=== PATIENT | male | born 1995 | race Hispanic/Latino ===

== ENCOUNTER 2020-03-21 11:27 | Day surgery (SDC) | payer OTHER ==
[2020-03-21] MEDS ORDERED: Ondansetron PF 4 MG/2 ML Vial ONE ×2 (11:53→12:06)
[2020-03-21] MEDS ORDERED: Ketorolac Tromethamine 30 MG/ML VIAL ONE (11:53)
[2020-03-21] MEDS ORDERED: Succinylcholine Chloride 20 MG/ML 10 ml SYRINGE FS ONE (11:53)
[2020-03-21] MEDS ORDERED: PROPOFOL 200 MG/20 ML VIAL ONE (11:53)
[2020-03-21] MEDS ORDERED: Dexamethasone 20 MG/5 ML VIAL ONE (11:53)
[2020-03-21] MEDS ORDERED: Rocuronium Bromide 10 MG/ML (10ML VIAL) ONE (11:53)
[2020-03-21] MEDS ORDERED: Lidocaine 1% PF 5 ML VIAL ONE (11:53)
[2020-03-21] MEDS ORDERED: Glycopyrrolate 0.2 MG/ML 5 ML SYRINGE ONE (11:53)
[2020-03-21 12:02] LABS: Hemoglobin 15.8 g/dL (14.0-18.0); Mean Corpuscular HGB CONC 32.5 g/dL (32.0-36.0); Mean Corpuscular Hemoglobin 29.9 pg (27.0-31.0); Mean Platelet Volume 10.3 fL (7.4-10.4); Platelet Count 203 thou/uL (130-400); RBC Distribution Width 11.8 % (11.5-14.5); Red Blood Cell (RBC) Count 5.28 mill/uL (4.70-6.10); White Blood Cell (WBC) Count 19.5 thou/uL (4.8-10.8)
[2020-03-21] MEDS ORDERED: Morphine 4 MG/ML VIAL ONE (12:06)
[2020-03-21] MEDS ORDERED: Piperacillin/Tazobactam 3.375 GM VIAL ONE (12:06)
--- NOTE | 2020-03-21 12:18 | RAD ---
PORTABLE CHEST: DATE: 03/21/2020. PROVIDED CLINICAL HISTORY: Right lower quadrant pain. FINDINGS: Cardiac and mediastinal silhouette is within normal limits. No focal consolidation, pleural fluid, o r pneumothorax apparent. IMPRESSION: No evidence for an acute cardiopulmonary process. POS: TINO
[2020-03-21 12:26] LABS: Band 14 % (5-11); Eosinophils 1 % (0-10); Lymphocytes 6 % (21-51); MDiff Complete? YES; Monocytes 5 % (0-10); Neutrophil 71 % (42-75); Platelet Morphology Comment Appears Adequate; Polychromasia SLIGHT = 2-3 cells (100X) (0-2/hpf); Reactive Lymphocytes 3 % (0-10)
[2020-03-21 12:30] LABS: ALT (SGPT) 12 U/L (8-55); AST (SGOT) 16 U/L (5-34); Alkaline Phosphatase 96 U/L (40-110); Anion Gap 17 mmol/L (10-20); BUN (Urea Nitrogen) 11 mg/dL (8.9-20.6); Bilirubin, Total 0.7 mg/dL (0.2-1.2); Calc. Creatinine Clearance 0 mL/min (70-130); Calcium 9.7 mg/dL (7.8-10.44); Carbon Dioxide 24 mmol/L (22-29); Chloride 99 mmol/L (98-107); Estimated GFR-MDRD Greater than 90; Globulin 3.2 g/dL (2.4-3.5); Glucose 104 mg/dL (70-105); Potassium 3.8 mmol/L (3.5-5.1); Protein, Total 8.2 g/dL (6.0-8.3); Sodium 136 mmol/L (136-145)
[2020-03-21] MEDS ORDERED: SUGAMMADEX SODIUM 200 MG/2 ML VIAL ONE (12:58)
[2020-03-21] MEDS ORDERED: Fentanyl 100 MCG/2 ML VIAL ONE (12:58)
[2020-03-21] MEDS ORDERED: Bupivacaine 0.25% HCL 30 ML VIAL ONE (13:06)
[2020-03-21] MEDS ORDERED: Lidocaine 1% w/Epinephrine 1:100K 20 ML VIAL ONE (13:06)
[2020-03-21] MEDS ORDERED: EPINEPHrine 1 MG/ML AMP ONE (13:09)
--- NOTE | 2020-03-21 13:15 | HP ---
HISTORY OF PRESENT ILLNESS: Mr. Manzano is a 24-year-old man, presented to emergency department today. The patient gives a history of insidious onset right lower quadrant abdominal pain of three days' duration. The patient admits to varying intensities and no radiation of the pain. He admits to some fever and chills. He is currently anorexic. He denies any change in his bowel habits. PAST MEDICAL HISTORY: The patient denies any previous medical problems. PAST SURGICAL HISTORY: He has had no previous surgeries. SOCIAL HISTORY: He lives at home with his mother and stepfather. He denies any cigarette smoking, ethanol, or illicit drug abuse. FAMILY HISTORY: The patient denies any family history of diabetes mellitus, heart disease, cancer, or any gastrointestinal disorders. CURRENT MEDICATIONS: None. ALLERGIES: THE PATIENT DENIES ANY KNOWN DRUG ALLERGIES. REVIEW OF SYSTEMS: Ten-point review of systems essentially unremarkable except as stated in past medical history and chief complaint. PHYSICAL EXAMINATION: GENERAL: This reveals a 24-year-old normally developed man, who is otherwise coherent, interactive, and appears stated age. The patient is alert and oriented x3, appears to be in no acute distress at the time of my evaluation. VITAL SIGNS: Include blood pressure 146/100, pulse 112, respiratory rate is 16, temperature 100.1 degrees Fahrenheit, oxygen saturation is 100% on room air. HEENT: Normocephalic and atraumatic. Pupils are equal, round, and reactive to light and accommodation. HEART: Reveals regular rate with sinus tachycardia. No murmurs or gallops auscultated. LUNGS: Clear to auscultation bilaterally. His breathing is regular and nonlabored. ABDOMEN: Soft with right lower quadrant tenderness at McBurney's. He has a positive Rovsing sign. Liver and spleen otherwise nonpalpable below costal margin. He has a positive heel tap test. NEUROLOGIC: Reveals no focal deficits present. LABORATORY FINDINGS: Today include a CBC with 19,500 white blood cells, hemoglobin and hematocrit 15.8 and 48.6 respectively. Platelet count is 203,000. Differential counts as follows; 71 segmented neutrophils, 14 bands, 6 lymphocytes, 5 monocytes, and 1 eosinophil. Metabolic profile; sodium 136, potassium 3.8, chloride is 99, bicarb is 24, BUN 11, creatinine 0.93, glucose 104, lactic acid 2.6, AST and ALT 16 and 12 respectively. Alkaline phosphatase is also normal at 96. IMPRESSIONS: Acute appendicitis, likely with perforation and localized peritonitis. RECOMMENDATIONS AND PLAN: Laparoscopic appendectomy. Above findings and recommendations have been discussed with the patient, who indicates understanding of information given. I have advised the patient of the risks and benefits of proposed surgery to include, but not limited to bleeding, infection, injury to bowel or surrounding structures. The patient indicates understanding of information provided. I have answered his questions. He has granted consent for this admission and surgical intervention. Job ID: [id number]
[2020-03-21] MEDS ORDERED: Scopolamine 1.5 mg/72 hour Patch ONE (13:42)
[2020-03-21 13:59] LABS: SARS-CoV-2 NAA Rapid Test Not Detected (NotDetected)
[2020-03-21 16:56] LABS: Lactic Acid 2.3 mmol/L (0.5-2.2)
--- NOTE | 2020-03-21 18:50 | OP ---
DATE OF PROCEDURE: 03/21/2020 PREOPERATIVE DIAGNOSIS: Acute appendicitis. POSTOPERATIVE DIAGNOSIS: Acute retrocecal appendicitis with localized peritonitis. OPERATION PERFORMED: Laparoscopic appendectomy. ANESTHESIA: General endotracheal. ESTIMATED BLOOD LOSS: 10 mL. FLUIDS GIVEN: 1000 mL of crystalloids. COUNTS: Sponge and instrument counts were verified as correct x2. COMPLICATIONS: None apparent at the time of operation. INDICATIONS FOR OPERATION: This is a 24-year-old man, presented with 3-day history of right lower quadrant abdominal pain. Clinical and radiographic examination were consistent with acute appendicitis, for which the patient was brought to the operating room for appendectomy. Findings are consistent with suppurative, but nonperforated retrocecal appendix. DESCRIPTION OF PROCEDURE: Informed consent was obtained from the patient. He was brought to the operating room and placed in supine position. Following general anesthesia, abdomen was sterilely prepped and draped in the usual fashion. The skin below the umbilicus was infiltrated with 0.25% Marcaine with epinephrine. A small curvilinear infraumbilical incision was made using 11 scalpel. Umbilical stalk was grasped with Ariana and elevated. Veress needle was inserted through the incision and placed in the peritoneal cavity, through which the abdomen was insufflated with 2.5 L of CO2 gas. Intraabdominal pressure noted at 1 mmHg. Following abdominal insufflation, Veress needle was removed and a 5-mm trocar introduced using a Visiport under laparoscopy. Laparoscopy confirmed proper placement of the port, no injuries to underlying structures. Additional laparoscopy revealed the right lower quadrant partially obscured by omental adhesions. Under direct laparoscopy, two 5-mm suprapubic and left lower quadrant ports were placed after the overlying skin was infiltrated with 0.25% Marcaine with epinephrine and appropriate incision was made. The patient was placed in a Trendelenburg position, rotated to his left. I introduced a Prestige grasper through the left lower quadrant port site, using this to bluntly take down omental adhesions to reveal a retrocecal appendix. Endo Wilfredo forceps introduced through the suprapubic port site, grasping the appendix, which was elevated. I created a rent through the mesoappendix using a [place] dissector. The mesoappendix was then sterilely taken down using the LigaSure with good hemostasis. The appendix itself was divided at the appendicocecal junction between Endoloop. The appendix was delivered off the abdominal cavity using an EndoCatch. Operative site was inspected for good hemostasis. Finding no other pathology, laparoscopy was terminated. Fascia of the left lower quadrant port was closed using 0 Vicryl suture and Endoclosure device under laparoscopy. The abdomen was desufflated. All ports and instruments were removed and accounted for. Skin incisions were closed using 4-0 Monocryl suture in subcuticular fashion. Dermabond was applied over incisional closure. The patient tolerated this operation without any apparent complication and was returned to recovery room in a satisfactory condition. Job ID: [id number]
== END 2020-03-21 16:47 | disposition home or self-care (01) ==
LOC: ERS 11:27 → SDC 13:04
PROVIDERS: ATTEND Surgery
PROC: 0DTJ4ZZ Resection of Appendix, Percutaneous Endoscopic Approach (ICD-10-PCS; principal; 2020-03-21)
DX: K35.30 Acute appendicitis with localized peritonitis, without perforation or gangrene (principal); Z20.828 Contact with and (suspected) exposure to other viral communicable diseases
CPT/HCPCS: 36415; 71045; 80053; 83605; 85025; 87040; 88304; 96365; 96375; J0171; J1100; J1885; J2270; J2405; J2543; J2704; J3010; S0020; U0002

== ENCOUNTER 2021-11-30 02:09 | Emergency (ER) | payer OTHER | END 2021-11-30 03:22 | disposition home or self-care (01) | LOC: ERS 02:09 | DX: K02.9 Dental caries, unspecified (principal) | CPT/HCPCS: 99281 ==